=== PATIENT | female | born 2005 | race Two or more races ===

== ENCOUNTER 2025-03-19 14:15 | Inpatient (IN) | payer MEDICAID ==
[~2025-03-19] VITALS: Ht 165.1 cm; Wt 67.8 kg
--- NOTE | 2025-03-19 14:33 | ED.PDOC ---
GI ASSESSMENT HPI Comments 19y F who presents to the ED for chief complaint of abdominal pain. Pt states she has been having abdominal pain since earlier this AM. Pt states she has been having associated RUQ abdominal pain radiating to the R flank, rating the pain 6/10, constant, with no associated exacerbating or relieving factors. Pt has associated nausea, vomiting, diarrhea, chills but denies any other symptoms. Pt denies sick contacts or changes to diet. Pt otherwise has stable vitals in the ED. Pt denies or these symptoms in the past. Chief Complaint: Abdominal Pain Time Seen by MD: 14:43 Reviewed Notes: Nurses Notes, Medications, Allergies Allergies: Coded Allergies: No Known Drug Allergy (Verified Allergy, Unknown, 03/19/25) Information Source: Patient Mode of Arrival: Ambulatory Brought in by: self Duration: Since onset Prehospital treatment: None Quality: Aching Vomitus: Food Particles Stool: Minimal Severity: Moderate Recent: None Pain Location: RUQ Modifying Factors: Nothing Associated sign and symptoms: Nausea, Vomiting, Diarrhea, Abdominal Pain Past Medical History Past Medical History (Other): polycystic kidney disease Surgical History: Denies all surgeries [employer] History: Denies all [employer] Hx Family History Family History (Other): polycystic kidney disease Social History Smoker: Non-Smoker Alcohol: Denies ETOH Use Drugs: Marijuana Lives In: Home Constitutional: reports: chills; denies: diaphoresis, fatigue, fever, malaise, sweats, weakness, others EENTM: denies: blurred vision, double vision, ear bleeding, ear discharge, ear drainage, ear pain, ear ringing, eye pain, eye redness, hearing loss, mouth pain, mouth swelling, nasal discharge, nose bleeding, nose congestion, nose pain, photophobia, tearing, throat pain, throat swelling, voice changes, others Respiratory: denies: cough, hemoptysis, orthopnea, SOB at rest, shortness of breath, SOB with excertion, stridor, wheezing, others Cardiovascular: denies: chest pain, dizzy spells, diaphoresis, Dyspnea on exertion, edema, irregular heart beat, left arm pain, lightheadedness, palpitations, PND, syncope, others Gastrointestinal: reports: diarrhea, nausea, vomiting; denies: abdomen distended, abdominal pain, blood streaked bowels, constipated, dysphagia, difficulty swallowing, hematemesis, melena, poor appetite, poor fluid intake, rectal bleeding, rectal pain, others Genitourinary: denies: abnormal vagina bleeding, burning, dyspareunia, dysuria, flank pain, frequency, hematuria, incontinence, pain, , vagina discharge, urgency, others Neurological: denies: dizziness, fainting, headache, left sided numbness, left sided weakness, numbness, paresthesia, pre-existing deficit, right sided numbness, right sided weakness, seizure, speech problems, tingling, tremors, weakness, others Musculoskeletal: denies: back pain, gout, joint pain, joint swelling, muscle pain, muscle stiffness, neck pain, others Integumetry: denies: bruises, change in color, change in hair/nails, dryness, laceration, lesions, lumps, rash, wounds, others Allergic/Immunocompromised: denies: Difficulty Healing, Frequent Infections, Hives, Itching, others Hematologic/Lymphatic: denies: anemia, blood clots, easy bleeding, easy bruising, swollen glands, others Endocrine: denies: excessive hunger, excessive sweating, excessive thirst, excessive urination, flushing, intolerance to cold, intolerance to heat, unexplained weight gain, unexplained weight loss, others Psychiatric: denies: anxiety, bipolar disorder, depression, hopeless, panic disorder, schizophrenia, sleepless, suicidal, others All Other Systems: Reviewed and Negative Physical Exam General Appearance: Moderate Distress HEENT: Normal ENT Inspection, Pharynx Normal, TMs Normal Neck: Full Range of Motion, Non-Tender, Normal, Normal Inspection Respiratory: Chest Non-Tender, Lungs Clear, No Accessory Muscle Use, No Respiratory Distress, Normal Breath Sounds Cardiovascular: No Edema, No JVD, No Murmur, No Gallop, Normal Peripheral Pulses, Regular Rate/Rhythm Breast Exam: Deferred Gastrointestinal: No Organomegaly, No Pulsatile Mass, Normal Bowel Sounds, RUQ, Soft, Tenderness Genitalia: Deferred Pelvic: Deferred Rectal: Deferred Extremities: No calf tenderness, Normal capillary refill, Normal inspection, Normal range of motion, Non-tender, No pedal edema Musculoskeletal : Apperance: Normal Neurologic: Alert, leguillon debeader II-XII nml as Tested, Motor Weakness, Normal Affect, Normal Mood, No Sensory Deficits Cerebellar Function: Normal Reflexes: Normal Skin: Dry, Normal Color, Warm Lymphatic: No Adenopathy Was a procedure done? Was a procedure done?: No GI differential Dx Differential Diagnosis: Esophagitis, Gastritis/PUD, Gastroenteritis, Pancreatitis, UTI, Dehydration, Food Poisoning, , Bacterial, Viral, Stress Ulcer, Kidney Stone Other Differential Diagnosis colitis X-Ray, Labs, Meds, VS Vital Signs Date Time Temp Pulse Resp B/P (MAP) Pulse Ox O2 Delivery O2 Flow Rate FiO2 03/19/25 15:47 99 Room Air* 0 21 03/19/25 15:46 98.3 89 17 128/82 (97) 99 98.3 03/19/25 14:16 98.3 84 16 130/96 96 98.3 Lab Test 03/19/25 15:01 Range/Units White Blood Count 10.6 4.4-10.8 10^3/uL Red Blood Count 4.56 4.0-5.20 10^6/uL Hemoglobin 14.0 12.2-16.2 g/dL Hematocrit 41.0 36.0-46.0 % Mean Corpuscular Volume 89.8 80.0-100.0 fL Mean Corpuscular Hemoglobin 30.7 28.0-32.0 pg Mean Corpuscular Hemoglobin Concent 34.2 32.0-36.0 g/dL Red Cell Distribution Width 12.8 11.8-14.3 % Platelet Count 297 140-450 10^3/uL Mean Platelet Volume 8.0 6.9-10.8 fL Neutrophils (%) (Auto) 87.6 H 37.0-80.0 % Lymphocytes (%) (Auto) 8.7 L 10.0-50.0 % Monocytes (%) (Auto) 3.3 0.0-12.0 % Eosinophils (%) (Auto) 0.2 0.0-7.0 % Basophils (%) (Auto) 0.2 0.0-2.0 % Neutrophils # (Auto) 9.3 H 1.6-8.6 10 ^3/uL Lymphocytes # (Auto) 0.9 0.4-5.4 10 ^3/uL Monocytes # (Auto) 0.3 0-1.3 10 ^3/uL Eosinophils # (Auto) 0 0-0.8 10 ^3/uL Basophils # (Auto) 0 0-0.2 10 ^3/uL Nucleated Red Blood Cells 0.0 % Sodium Level 141 136-145 mmol/L Potassium Level 3.8 3.5-5.1 mmol/L Chloride Level 106 98-107 mmol/L Carbon Dioxide Level 26 20-31 mmol/L Anion Gap 9 5-15 Blood Urea Nitrogen 11 9-23 mg/dL Creatinine 0.67 0.550-1.02 mg/dL Glomerular Filtration Rate Calc 128 >90 mL/min BUN/Creatinine Ratio 16.4 10.0-20.0 Serum Glucose 114 H 74-106 mg/dL Calcium Level 9.8 8.7-10.4 mg/dL Total Bilirubin 1.1 H 0.2-1.0 mg/dL Aspartate Amino Transferase (AST) 16 13-40 U/L Alanine Aminotransferase (ALT) 9 7-40 U/L Alkaline Phosphatase 77 46-116 U/L Total Protein 7.7 5.7-8.2 g/dL Albumin 4.7 3.2-4.8 g/dL Lipase 48 12-53 U/L Current Medications Medications (Trade) Dose Ordered Sig/Mari Route Start Time Stop Time Status Last Admin Sodium Chloride 1,000 ml @ 1,000 mls/hr Q1H ONCE IV 03/19/25 14:45 03/19/25 15:44 DC 03/19/25 16:03 Ondansetron HCl (Zofran) 4 mg ONCE ONCE IV 03/19/25 14:45 03/19/25 14:46 DC 03/19/25 16:02 EXAM: CT CT AB PEL WO CON-NO ORAL OR IV IMPRESSION: Innumerable bilateral renal cysts, incompletely characterized on this study, largest measuring 10 cm in the left kidney. This could be secondary to polycystic kidney disease. Nonspecific mild fat stranding along the bilateral paracolic gutters. No loculated fluid collection. The patient's CBC is within normal limits The chemistry panel is within normal limits The patient has a lipase is within normal limits The patient was given normal saline at 1 L bolus The patient was given Zofran 4 mg IV push At this time, the patient is being admitted with a polycystic disease The patient will be admitted for pain management Images Reviewed?: Images reviewed and evaluated by me Time of 1ST Reevaluation: 14:45 Reevaluation 1ST: Unchanged Patient Education/Counseling: Diagnosis, Treatment Family Education/Counseling: No Family Present SEPSIS Sepsis Screen Date sepsis recognized/suspect: Mar 19, 2025 Time Sepsis recognized/suspect: 1419 Recent Procedure: No On Antibiotic Therapy: No Respiratory Rate >20: No Heart Rate >90: No Temp<36 C (96.8 F) or >38.3 C: No SBP <90 or MAP <65 mmHG: No New Acute Mental Status Change: No Is the patient on CPAP, BIPAP,: No Physician Orders Urinalysis (03/19/25 14:34) Ct Ab Pel Wo Con-No Oral Or Iv (03/19/25 14:34) Heplock Iv (03/19/25 ) Vital Signs Date Time Temp Pulse Resp B/P (MAP) Pulse Ox O2 Delivery O2 Flow Rate FiO2 03/19/25 15:47 99 Room Air* 0 21 03/19/25 15:46 98.3 89 17 128/82 (97) 99 98.3 03/19/25 14:16 98.3 84 16 130/96 96 98.3 Laboratory Tests Test 03/19/25 15:01 White Blood Count 10.6 10^3/uL (4.4-10.8) Medications Medications Dose Ordered Sig/Mari Route Start Time Stop Time Status Last Admin Dose Admin Ondansetron HCl 4 mg ONCE ONCE IV 03/19/25 14:45 03/19/25 14:46 DC 03/19/25 16:02 Sodium Chloride 1,000 ml @ 1,000 mls/hr Q1H ONCE IV 03/19/25 14:45 03/19/25 15:44 DC 03/19/25 16:03 Departure 1 Departure Time of Disposition: 16:28 Impression: Primary Impression: Intractable abdominal pain Additional Impression: Polycystic kidney disease Disposition: ADMITTED INPATIENT Admit to: Med Surg Condition: Fair Critical Care Note Critical Care Time?: No Stability Stability form required: Yes Unstable for transfer: ED Physician Assesment (Clinical assesment) Heart Score Heart Score: Heart Score Response (Comments) Value History N/A 0 EKG N/A 0 Age N/A 0 Risk Factors N/A 0 Troponin N/A 0 Total 0 I personally scribed for KIRILL REEVES MD ([email or web address]) on 03/19/25 at 14:33. Electronically submitted by Smita Chambers ([facility]). I personally scribed for KIRILL REEVES MD ([email or web address]) on 03/19/25 at 14:47. Electronically submitted by Smita Chambers ([facility] [place] I personally scribed for KIRILL REEVES MD ([email or web address]) on 03/19/25 at 15:28. Electronically submitted by Smita Chambers ([facility] [place] KIRILL REEVES MD Mar 19, 2025 14:33
[2025-03-19 15:13] LABS: Hematocrit 41.0 % (36.0-46.0); Hemoglobin 14.0 g/dL (12.2-16.2); Mean Corpuscular Hemoglobin 30.7 pg (28.0-32.0); Mean Corpuscular Volume 89.8 fL (80.0-100.0); Nucleated Red Blood Cells % 0.0 %
--- NOTE | 2025-03-19 15:18 | DVH ---
EXAM: CT CT AB PEL WO CON-NO ORAL OR IV HISTORY: pain Comparison Study: None Exam Date: 03/19/2025 02:45 PM Radiation Dose Information: CT Dose: CTDI volume is 6 mGy. Dose-length product is 339 mGy*cm TECHNIQUE: Multidetector CT of the abdomen and pelvis was performed. Imaging was performed without IV contrast. Axial, coronal and sagittal multiplanar reformats were obtained from the axial data set by the technologist. FINDINGS: Lack of intravenous contrast compromises evaluation of perfusion and for isodense lesions. Lower chest: Clear. Liver: Unremarkable Biliary system: Unremarkable Spleen: Unremarkable Pancreas: Unremarkable. Adrenals: Unremarkable. Kidneys and ureters: No hydronephrosis. Innumerable bilateral renal cysts, incompletely characterized on this study, largest measuring 10 cm in the left kidney. Bowel: No obstruction. Bladder: Unremarkable Reproductive organs: No abnormal mass. Lymph nodes: Unremarkable. Peritoneum: Nonspecific mild fat stranding along the bilateral paracolic gutters. No loculated fluid collection. Vessels: Patency not evaluated on this noncontrast study. Bones and soft tissue: No aggressive osseous lesion IMPRESSION: Innumerable bilateral renal cysts, incompletely characterized on this study, largest measuring 10 cm in the left kidney. This could be secondary to polycystic kidney disease. Nonspecific mild fat stranding along the bilateral paracolic gutters. No loculated fluid collection.
[2025-03-19 15:28] LABS: Alkaline Phosphatase 77 U/L (46-116); Calcium 9.8 mg/dL (8.7-10.4); Carbon Dioxide 26 mmol/L (20-31); Chloride 106 mmol/L (98-107)
[2025-03-19 15:29] LABS: Albumin 4.7 g/dL (3.2-4.8); Anion Gap 9 (5-15); BUN/Creatinine Ratio 16.4 (10.0-20.0); Bilirubin, Total 1.1 mg/dL (0.2-1.0); Blood Urea Nitrogen 11 mg/dL (9-23); Lipase 48 U/L (12-53); Potassium 3.8 mmol/L (3.5-5.1); Sodium 141 mmol/L (136-145); Total Protein 7.7 g/dL (5.7-8.2)
[2025-03-19 15:34] LABS: Alanine Aminotransferase 9 U/L (7-40); Glucose 114 mg/dL (74-106)
[2025-03-19] MEDS: ONDANSETRON HCL 4 MG/2 ML VIAL IV ONE (16:02)
[2025-03-19] MEDS: SODIUM CHLORIDE 0.9% 1,000 ML IV ONE (16:03)
--- NOTE | 2025-03-19 17:22 | DVHHP2 ---
Admitting Diagnosis: Abdominal pain History of Present Illness 19y F who presents to the ED for chief complaint of abdominal pain. Pt states she has been having abdominal pain since earlier this AM. Pt states she has been having associated RUQ abdominal pain radiating to the R flank, rating the pain 6/10, constant, with no associated exacerbating or relieving factors. Pt has associated nausea, vomiting, diarrhea, chills but denies any other symptoms. Pt denies sick contacts or changes to diet. Pt otherwise has stable vitals in the ED. Pt denies or these symptoms in the past. 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 Mild distress HEENT-atraumatic, normocephalic Heart-regular rate and rhythm Lungs clear to auscultate bilaterally Abdomen soft nontender nondistended Musculoskeletal-no edema or cyanosis Neuro-AO x3, no focal SEPSIS Sepsis Screen Date sepsis recognized/suspect: Mar 19, 2025 Time Sepsis recognized/suspect: 1419 Recent Procedure: No On Antibiotic Therapy: No Respiratory Rate >20: No Heart Rate >90: No Temp<36 C (96.8 F) or >38.3 C: No SBP <90 or MAP <65 mmHG: No New Acute Mental Status Change: No Is the patient on CPAP, BIPAP,: No Physician Orders Urinalysis (03/19/25 14:34) Ct Ab Pel Wo Con-No Oral Or Iv (03/19/25 14:34) Heplock Iv (03/19/25 ) Admit (03/19/25 17:17) Code Status (03/19/25 17:17) Vital Signs .PER UNIT PROTOCOL (03/19/25 17:17) Review Orders With Adm. (03/19/25 17:17) Encourage Activity As Tolerate (03/19/25 17:17) Sodium Chloride Lock (Saline Lock Ns) (03/19/25 22:00) Sodium Chloride 0.9% (03/19/25 17:30) Docusate Sodium Capsule (Colace Capsule) (03/19/25 17:30) Acetaminophen Tablet (Tylenol Tablet) (03/19/25 17:30) Notify Md Of Changes From Base (03/19/25 17:17) Advance Directive (03/19/25 17:17) Patient Condition (03/19/25 17:17) Allergies (03/19/25 17:17) Hydrocodone-Acet 5/325mg Tab ([place] 32 (03/19/25 17:30) Hydromorphone Injection (Dilaudid Inject (03/19/25 17:30) Ondansetron Hcl (Zofran) (03/19/25 17:30) Complete Blood Count (03/20/25 05:00) Complete Blood Count (03/21/25 05:00) Complete Blood Count (03/22/25 05:00) Complete Blood Count (03/23/25 05:00) Complete Blood Count (03/24/25 05:00) Comprehensive Metabolic Panel (03/20/25 05:00) Comprehensive Metabolic Panel (03/21/25 05:00) Comprehensive Metabolic Panel (03/22/25 05:00) Comprehensive Metabolic Panel (03/23/25 05:00) Comprehensive Metabolic Panel (03/24/25 05:00) Ceftriaxone Ivpb Rocephin (03/20/25 10:00) Vital Signs Date Time Temp Pulse Resp B/P (MAP) Pulse Ox O2 Delivery O2 Flow Rate FiO2 03/19/25 15:47 99 Room Air* 0 21 03/19/25 15:46 98.3 89 17 128/82 (97) 99 98.3 03/19/25 14:16 98.3 84 16 130/96 96 98.3 Laboratory Tests Test 03/19/25 15:01 White Blood Count 10.6 10^3/uL (4.4-10.8) Medications Medications Dose Ordered Sig/Mari Route Start Time Stop Time Status Last Admin Dose Admin Ondansetron HCl 4 mg ONCE ONCE IV 03/19/25 14:45 03/19/25 14:46 DC 03/19/25 16:02 Sodium Chloride 1,000 ml @ 1,000 mls/hr Q1H ONCE IV 03/19/25 14:45 03/19/25 15:44 DC 03/19/25 16:03 Results Labs Test 03/19/25 15:01 Range/Units White Blood Count 10.6 4.4-10.8 10^3/uL Red Blood Count 4.56 4.0-5.20 10^6/uL Hemoglobin 14.0 12.2-16.2 g/dL Hematocrit 41.0 36.0-46.0 % Mean Corpuscular Volume 89.8 80.0-100.0 fL Mean Corpuscular Hemoglobin 30.7 28.0-32.0 pg Mean Corpuscular Hemoglobin Concent 34.2 32.0-36.0 g/dL Red Cell Distribution Width 12.8 11.8-14.3 % Platelet Count 297 140-450 10^3/uL Mean Platelet Volume 8.0 6.9-10.8 fL Neutrophils (%) (Auto) 87.6 H 37.0-80.0 % Lymphocytes (%) (Auto) 8.7 L 10.0-50.0 % Monocytes (%) (Auto) 3.3 0.0-12.0 % Eosinophils (%) (Auto) 0.2 0.0-7.0 % Basophils (%) (Auto) 0.2 0.0-2.0 % Neutrophils # (Auto) 9.3 H 1.6-8.6 10 ^3/uL Lymphocytes # (Auto) 0.9 0.4-5.4 10 ^3/uL Monocytes # (Auto) 0.3 0-1.3 10 ^3/uL Eosinophils # (Auto) 0 0-0.8 10 ^3/uL Basophils # (Auto) 0 0-0.2 10 ^3/uL Nucleated Red Blood Cells 0.0 % Sodium Level 141 136-145 mmol/L Potassium Level 3.8 3.5-5.1 mmol/L Chloride Level 106 98-107 mmol/L Carbon Dioxide Level 26 20-31 mmol/L Anion Gap 9 5-15 Blood Urea Nitrogen 11 9-23 mg/dL Creatinine 0.67 0.550-1.02 mg/dL Glomerular Filtration Rate Calc 128 >90 mL/min BUN/Creatinine Ratio 16.4 10.0-20.0 Serum Glucose 114 H 74-106 mg/dL Calcium Level 9.8 8.7-10.4 mg/dL Total Bilirubin 1.1 H 0.2-1.0 mg/dL Aspartate Amino Transferase (AST) 16 13-40 U/L Alanine Aminotransferase (ALT) 9 7-40 U/L Alkaline Phosphatase 77 46-116 U/L Total Protein 7.7 5.7-8.2 g/dL Albumin 4.7 3.2-4.8 g/dL Lipase 48 12-53 U/L Primary Diagnosis Acute pyelonephritis Polycystic kidney disease Plan Check blood culture, check urine culture After collected culture start ceftriaxone 2 g q.day IV fluids Pain control Regular diet Lovenox for DVT prophylaxis No GI ppx need full code Plan discussed with: Patient Date of Service: Mar 19, 2025 Billing Provider: AVNI LAM MD Common Visit Codes: [id number] INP/OBS CARE (HIGH) AVNI LAM MD Mar 19, 2025 17:22
[2025-03-19] MEDS ORDERED: DOCUSATE SOD 100 MG CAP PO PRN (17:30)
[2025-03-19] MEDS ORDERED: HYDROcodone-ACET 5/325MG TAB PO PRN (17:30)
[2025-03-19] MEDS ORDERED: HYDROmorphone HCL 2 MG/ML VL/or syr IV PRN (17:30)
[2025-03-19 20:24] VITALS: RESP 16; O2SAT 98
[2025-03-19 20:30] LABS: Urine Amorphous Crystal FEW /hpf (None Seen); Urine Protein, UAD Negative (Negative)
[2025-03-19] MEDS: SODIUM CHLORIDE 0.9% 1,000 ML IV SCH (20:57)
[2025-03-19 21:00] VITALS: BP 127/86; PULSE 57; RESP 18; TEMP 98.2; O2SAT 99
[2025-03-19] MEDS: SODIUM CHLOR 0.9% PF (SALINE LOCK) 10ML VIAL/SYR IV SCH (21:03)
[2025-03-19 22:02] VITALS: BP 127/86; PULSE 57; RESP 18; TEMP 98.2; O2SAT 99
[2025-03-19] MEDS ORDERED: RIS1T PO (22:35)
[2025-03-19] MEDS ORDERED: FLUO40CA PO (22:35)
[2025-03-20] VITALS (8 sets, daily range): BP systolic 104–125; BP diastolic 59–87; PULSE 74–84; RESP 17–19; TEMP 97.5–98.7; O2SAT 92–99
[2025-03-20 06:13] LABS: Hematocrit 37.3 % (36.0-46.0); Hemoglobin 13.1 g/dL (12.2-16.2); Mean Corpuscular Hemoglobin 31.3 pg (28.0-32.0); Mean Corpuscular Volume 89.2 fL (80.0-100.0); Nucleated Red Blood Cells % 0.3 %
[2025-03-20 06:34] LABS: Albumin 3.8 g/dL (3.2-4.8); Alkaline Phosphatase 68 U/L (46-116); Anion Gap 9 (5-15); BUN/Creatinine Ratio 13.4 (10.0-20.0); Calcium 8.7 mg/dL (8.7-10.4); Carbon Dioxide 25 mmol/L (20-31); Chloride 106 mmol/L (98-107); Glucose 95 mg/dL (74-106); Sodium 140 mmol/L (136-145); Total Protein 6.3 g/dL (5.7-8.2)
[2025-03-20 06:40] LABS: Alanine Aminotransferase < 9 U/L (7-40); Bilirubin, Total 1.3 mg/dL (0.2-1.0); Blood Urea Nitrogen 9 mg/dL (9-23); Potassium 3.4 mmol/L (3.5-5.1)
[2025-03-20] MEDS: ONDANSETRON HCL 4 MG/2 ML VIAL IV PRN (21:41)
[2025-03-20] MEDS: ACETAMINOPHEN 325 MG TAB PO PRN (21:42)
[2025-03-21] VITALS (8 sets, daily range): BP systolic 90–121; BP diastolic 55–79; PULSE 64–75; RESP 17–19; TEMP 97.9–99; O2SAT 96–98
[2025-03-21 06:11] LABS: Hematocrit 37.3 % (36.0-46.0); Hemoglobin 12.9 g/dL (12.2-16.2); Mean Corpuscular Hemoglobin 30.7 pg (28.0-32.0); Mean Corpuscular Volume 89.1 fL (80.0-100.0); Nucleated Red Blood Cells % 0.3 %
[2025-03-21 06:15] LABS: Alkaline Phosphatase 62 U/L (46-116); Anion Gap 9 (5-15); BUN/Creatinine Ratio 17.1 (10.0-20.0); Blood Urea Nitrogen 13 mg/dL (9-23); Calcium 8.8 mg/dL (8.7-10.4); Carbon Dioxide 26 mmol/L (20-31); Chloride 106 mmol/L (98-107); Glucose 95 mg/dL (74-106); Potassium 3.9 mmol/L (3.5-5.1); Sodium 141 mmol/L (136-145); Total Protein 6.1 g/dL (5.7-8.2)
[2025-03-21 06:16] LABS: Albumin 3.7 g/dL (3.2-4.8); Bilirubin, Total 0.8 mg/dL (0.2-1.0)
[2025-03-21 06:18] LABS: Alanine Aminotransferase < 9 U/L (7-40)
--- NOTE | 2025-03-21 13:22 | DVHPN2 ---
Reviewed: Care Plan, H&P, Labs, Medications, Previous Orders Changes from previous H/P or p: No Changes General: Per HPI Objective Vitals Vital Signs Date Time Temp Pulse Resp B/P (MAP) Pulse Ox O2 Delivery O2 Flow Rate FiO2 03/21/25 09:00 98.0 71 18 100/61 (74) 97 98.0 03/21/25 08:10 Room Air* 0 21 Intake/Output Intake and Output 03/21/25 07:00 Intake Total 2630 ml Balance 2630 ml Intake Oral 1580 ml IV Total 1050 ml # Voids 12 # Bowel Movements 2 Medications Current Medications Medications Dose Ordered Sig/Mari Route Start Time Stop Time Status Last Admin Dose Admin Sodium Chloride 10 ml Q8HR IV 03/19/25 22:00 03/21/25 07:05 10 ML Sodium Chloride 1,000 ml @ 60 mls/hr [id number] IV 03/19/25 17:30 03/21/25 07:04 60 MLS/HR Docusate Sodium 100 mg BIDPRN PRN PO 03/19/25 17:30 Acetaminophen 650 mg Q6HP PRN PO 03/19/25 17:30 03/20/25 21:42 650 MG Acetaminophen/ Hydrocodone Bitart 1 tab Q4HP PRN PO 03/19/25 17:30 Hydromorphone HCl 0.5 mg Q4HP PRN IV 03/19/25 17:30 Ondansetron HCl 4 mg Q4HP PRN IV 03/19/25 17:30 03/20/25 21:41 4 MG Ceftriaxone Sodium/Dextrose 50 ml @ 50 mls/hr DAILY IV 03/20/25 10:00 03/21/25 09:47 50 MLS/HR Laboratory Results Laboratory Tests 03/21/25 05:19 Chemistry Test 03/21/25 05:19 Albumin 3.7 g/dL (3.2-4.8) Calcium Level 8.8 mg/dL (8.7-10.4) Total Protein 6.1 g/dL (5.7-8.2) LFT Test 03/21/25 05:19 Alanine Aminotransferase (ALT) < 9 U/L (7-40) Alkaline Phosphatase 62 U/L (46-116) Aspartate Amino Transferase (AST) 11 U/L (13-40) L Total Bilirubin 0.8 mg/dL (0.2-1.0) Urinalysis Test 03/19/25 19:58 Urine Color Light-yellow (Yellow) Urine Clarity Clear (Clear) Urine pH 5.5 (5.0-9.0) Urine Specific [place] 1.018 (1.001-1.035) Urine Protein Negative (Negative) Urine Ketones 1+ (Negative) H Urine Blood Negative /uL (Negative) Urine Nitrite Negative (Negative) Urine Bilirubin Negative (Negative) Urine Urobilinogen Normal mg/dL (Negative) Urine Leukocyte Esterase Negative /uL (Negative) Urine RBC <1 /hpf (0 - 4) Urine Microscopic WBC 1 /HPF (0-5) Urine Squamous Epithelial Cells Few /hpf (<5) Urine Amorphous Crystals Few /hpf (None Seen) Urine Bacteria Few /hpf (None Seen) H Urine Mucus Few (None Seen) Urine Glucose Normal mg/dL (Normal) Microbiology Microbiology Date/Time Source Procedure Growth Status 03/19/25 19:58 Voided Urine Urine Culture - Preliminary Resulted 03/19/25 18:10 Blood Blood Culture - Preliminary NO GROWTH AFTER 24 HOURS OF INCUBATION. Resulted Labs and/or images reviewed: Image(s) reviewed by me Assessment/Plan Assessment/Plan 19y F who presents to the ED for chief complaint of abdominal pain. Pt states she has been having abdominal pain since earlier this AM. Pt states she has been having associated RUQ abdominal pain radiating to the R flank, rating the pain 6/10, constant, with no associated exacerbating or relieving factors. Pt has associated nausea, vomiting, diarrhea, chills but denies any other symptoms. Pt denies sick contacts or changes to diet. Pt otherwise has stable vitals in the ED. Pt denies or these symptoms in the past. Acute pyelonephritis Polycystic kidney disease improving Plan discussed with: Patient Date of Service: Mar 20, 2025 Billing Provider: DANTE KUMARI DO Common Visit Codes: [id number] INP/OBS CARE(HIGH) DANTE KUMARI DO Mar 21, 2025 13:22
[2025-03-22] VITALS (7 sets, daily range): BP systolic 101–127; BP diastolic 66–84; PULSE 68–87; RESP 14–20; TEMP 97.1–98.9; O2SAT 95–98
[2025-03-22 05:31] LABS: Hematocrit 37.0 % (36.0-46.0); Hemoglobin 12.7 g/dL (12.2-16.2); Mean Corpuscular Hemoglobin 30.5 pg (28.0-32.0); Mean Corpuscular Volume 89.0 fL (80.0-100.0); Nucleated Red Blood Cells % 0.0 %
[2025-03-22 05:49] LABS: Albumin 3.9 g/dL (3.2-4.8); Alkaline Phosphatase 64 U/L (46-116); Anion Gap 9 (5-15); BUN/Creatinine Ratio 19.7 (10.0-20.0); Blood Urea Nitrogen 12 mg/dL (9-23); Calcium 8.9 mg/dL (8.7-10.4); Carbon Dioxide 25 mmol/L (20-31); Chloride 105 mmol/L (98-107); Glucose 93 mg/dL (74-106); Sodium 139 mmol/L (136-145); Total Protein 6.4 g/dL (5.7-8.2)
[2025-03-22 05:50] LABS: Bilirubin, Total 0.6 mg/dL (0.2-1.0)
[2025-03-22 05:54] LABS: Alanine Aminotransferase < 9 U/L (7-40); Potassium 3.4 mmol/L (3.5-5.1)
[2025-03-22] MEDS ORDERED: LEVO500T91 PO (16:12)
--- NOTE | 2025-03-22 16:13 | DVHDS2 ---
Discharge Summary Date of Admission Mar 19, 2025 at 17:17 Date of Discharge: Mar 22, 2025 Labs/Diagnostic Data: Laboratory Results Test 03/22/25 05:00 03/19/25 19:58 03/19/25 15:01 White Blood Count 5.0 10^3/uL (4.4-10.8) Red Blood Count 4.16 10^6/uL (4.0-5.20) Hemoglobin 12.7 g/dL (12.2-16.2) Hematocrit 37.0 % (36.0-46.0) Mean Corpuscular Volume 89.0 fL (80.0-100.0) Mean Corpuscular Hemoglobin 30.5 pg (28.0-32.0) Mean Corpuscular Hemoglobin Concent 34.2 g/dL (32.0-36.0) Red Cell Distribution Width 12.6 % (11.8-14.3) Platelet Count 246 10^3/uL (140-450) Mean Platelet Volume 8.0 fL (6.9-10.8) Neutrophils (%) (Auto) 49.5 % (37.0-80.0) Lymphocytes (%) (Auto) 38.4 % (10.0-50.0) Monocytes (%) (Auto) 6.8 % (0.0-12.0) Eosinophils (%) (Auto) 5.1 % (0.0-7.0) Basophils (%) (Auto) 0.2 % (0.0-2.0) Neutrophils # (Auto) 2.5 10 ^3/uL (1.6-8.6) Lymphocytes # (Auto) 1.9 10 ^3/uL (0.4-5.4) Monocytes # (Auto) 0.3 10 ^3/uL (0-1.3) Eosinophils # (Auto) 0.3 10 ^3/uL (0-0.8) Basophils # (Auto) 0 10 ^3/uL (0-0.2) Nucleated Red Blood Cells 0.0 % Sodium Level 139 mmol/L (136-145) Potassium Level 3.4 mmol/L (3.5-5.1) Chloride Level 105 mmol/L (98-107) Carbon Dioxide Level 25 mmol/L (20-31) Anion Gap 9 (5-15) Blood Urea Nitrogen 12 mg/dL (9-23) Creatinine 0.61 mg/dL (0.550-1.02) Glomerular Filtration Rate Calc 131 mL/min (>90) BUN/Creatinine Ratio 19.7 (10.0-20.0) Serum Glucose 93 mg/dL (74-106) Calcium Level 8.9 mg/dL (8.7-10.4) Total Bilirubin 0.6 mg/dL (0.2-1.0) Aspartate Amino Transferase (AST) 11 U/L (13-40) Alanine Aminotransferase (ALT) < 9 U/L (7-40) Alkaline Phosphatase 64 U/L (46-116) Total Protein 6.4 g/dL (5.7-8.2) Albumin 3.9 g/dL (3.2-4.8) Urine Color Light-yellow (Yellow) Urine Clarity Clear (Clear) Urine pH 5.5 (5.0-9.0) Urine Specific [place] 1.018 (1.001-1.035) Urine Protein Negative (Negative) Urine Ketones 1+ (Negative) Urine Blood Negative /uL (Negative) Urine Nitrite Negative (Negative) Urine Bilirubin Negative (Negative) Urine Urobilinogen Normal mg/dL (Negative) Urine Leukocyte Esterase Negative /uL (Negative) Urine RBC <1 /hpf (0 - 4) Urine Microscopic WBC 1 /HPF (0-5) Urine Squamous Epithelial Cells Few /hpf (<5) Urine Amorphous Crystals Few /hpf (None Seen) Urine Bacteria Few /hpf (None Seen) Urine Mucus Few (None Seen) Urine Glucose Normal mg/dL (Normal) Lipase 48 U/L (12-53) Other Laboratory Tests 03/22/25 05:00 Brief Hx & Hospital Course: 19y F who presents to the ED for chief complaint of abdominal pain. Pt states she has been having abdominal pain since earlier this AM. Pt states she has been having associated RUQ abdominal pain radiating to the R flank, rating the pain 6/10, constant, with no associated exacerbating or relieving factors. Pt has associated nausea, vomiting, diarrhea, chills but denies any other symptoms. Pt denies sick contacts or changes to diet. Pt otherwise has stable vitals in the ED. Pt denies or these symptoms in the past. Acute pyelonephritis Polycystic kidney disease discharged to home with oral Abx Condition at Discharge: Fair Final Diagnosis/Problems List see above Discharge Disposition: Home Discharge Instruct/Medications Diet: Cardiac 2g Na,low cholest Activity: No Restrictions, As Tolerated Scheduled Fluoxetine Hcl (Fluoxetine Hcl), 1 CAP PO QAM, (Reported) Levofloxacin Hemihydrate (Levofloxacin), 1 TAB PO DAILY Risperidone (RisperDAL TABLET), 1 TAB PO QPM, (Reported) Discharge Statement: "Patient was advised to return to the ER or call 911 if any headaches, dizziness, shortness of breath, chest pain, abdominal pain, bleeding, fevers, or worsening of medical condition. Patient was counseled about treatment plan, medications, possible side effects, patientverbalized understanding. All questions were answered to the best of my ability. This discharge took greater then 30 minutes in planning, reviewing documentation, counseling the patient, and discussing with other team members." ASSESSMENT ASSESSMENT Assessment Date of Service: Apr 22, 2025 Billing Provider: DANTE KUMARI DO Common Visit Codes: 67162-RLX/[id number] DISCH DAY >30min DANTE KUMARI DO Mar 22, 2025 16:13
--- NOTE | 2025-03-22 22:49 | DVHPN2 ---
Reviewed: Care Plan, H&P, Labs, Previous Orders, Radiology Changes from previous H/P or p: No Changes General: Per HPI Objective Vitals Vital Signs Date Time Temp Pulse Resp B/P (MAP) Pulse Ox O2 Delivery O2 Flow Rate FiO2 03/22/25 17:05 98.8 74 20 97 03/22/25 16:44 127/83 (98) 03/22/25 08:00 Room Air* 0 21 Intake/Output Intake and Output 03/22/25 07:00 Intake Total 1770 ml Balance 1770 ml Intake Oral 1720 ml IV Total 50 ml # Voids 6 Laboratory Results Laboratory Tests 03/22/25 05:00 Chemistry Test 03/22/25 05:00 Albumin 3.9 g/dL (3.2-4.8) Calcium Level 8.9 mg/dL (8.7-10.4) Total Protein 6.4 g/dL (5.7-8.2) LFT Test 03/22/25 05:00 Alanine Aminotransferase (ALT) < 9 U/L (7-40) Alkaline Phosphatase 64 U/L (46-116) Aspartate Amino Transferase (AST) 11 U/L (13-40) L Total Bilirubin 0.6 mg/dL (0.2-1.0) Urinalysis Test 03/19/25 19:58 Urine Color Light-yellow (Yellow) Urine Clarity Clear (Clear) Urine pH 5.5 (5.0-9.0) Urine Specific [place] 1.018 (1.001-1.035) Urine Protein Negative (Negative) Urine Ketones 1+ (Negative) H Urine Blood Negative /uL (Negative) Urine Nitrite Negative (Negative) Urine Bilirubin Negative (Negative) Urine Urobilinogen Normal mg/dL (Negative) Urine Leukocyte Esterase Negative /uL (Negative) Urine RBC <1 /hpf (0 - 4) Urine Microscopic WBC 1 /HPF (0-5) Urine Squamous Epithelial Cells Few /hpf (<5) Urine Amorphous Crystals Few /hpf (None Seen) Urine Bacteria Few /hpf (None Seen) H Urine Mucus Few (None Seen) Urine Glucose Normal mg/dL (Normal) Microbiology Microbiology Date/Time Source Procedure Growth Status 03/19/25 19:58 Voided Urine Urine Culture - Preliminary Resulted 03/19/25 18:10 Blood Blood Culture - Preliminary NO GROWTH AFTER 72 HOURS OF INCUBATION. Resulted Assessment/Plan Assessment/Plan 19y F who presents to the ED for chief complaint of abdominal pain. Pt states she has been having abdominal pain since earlier this AM. Pt states she has been having associated RUQ abdominal pain radiating to the R flank, rating the pain 6/10, constant, with no associated exacerbating or relieving factors. Pt has associated nausea, vomiting, diarrhea, chills but denies any other symptoms. Pt denies sick contacts or changes to diet. Pt otherwise has stable vitals in the ED. Pt denies or these symptoms in the past. Acute pyelonephritis Polycystic kidney disease pending urine culture still has flank pain and nausea Plan discussed with: Patient My Orders Orders - DANTE KUMARI DO Procedure Category Date Status Time Discharge DISCHARGE 03/22/25 Transmitted 16:12 Date of Service: Mar 20, 2025 Billing Provider: DANTE KUMARI DO Common Visit Codes: [id number] INP/OBS CARE(HIGH) DANTE KUMARI DO Mar 22, 2025 22:49
== END 2025-03-22 17:40 | disposition home or self-care (01) | DRG 463 ==
LOC: ER 14:15 → OVERFLOW 17:17 → EAST 23:30
PROVIDERS: ADMIT Internal Medicine; ATTEND Internal Medicine
DX: N10 Acute pyelonephritis (principal); Q61.3 Polycystic kidney, unspecified; Z82.71 Family history of polycystic kidney
CPT/HCPCS: 36415; 74176; 80053; 81001; 83690; 85025; 87040; 87086; 96361; 96374; G0378; J2405